=== PATIENT | female | born 2000 | race American Indian/Alaskan Native ===

== ENCOUNTER 2022-07-07 22:43 | Emergency (ER) | payer SELFPAY ==
[2022-07-07 23:12] VITALS: BP 116/73
== END 2022-07-08 00:32 | disposition left against medical advice (07) ==
LOC: ED 22:43
DX: S09.90XA Unspecified injury of head, initial encounter (principal); X58.XXXA Exposure to other specified factors, initial encounter; Z53.21 Procedure and treatment not carried out due to patient leaving prior to being seen by health care provider; Y93.89 Activity, other specified; Y92.89 Other specified places as the place of occurrence of the external cause; Y99.8 Other external cause status